=== PATIENT | female | born 1985 | race Caucasian/White ===

== ENCOUNTER 2020-04-02 05:42 | Inpatient (IN) ==
[2020-04-02] MEDS ORDERED: LACTATED RINGERS 1,000 ML IV PRN (05:51)
[2020-04-02] MEDS ORDERED: ONDANSETRON 4 MG/2 ML VIAL IV PRN ×2 (05:51→09:11)
[2020-04-02] MEDS ORDERED: CITRIC ACID/SODIUM CITRATE 30 ML UDCUP PO ONE (05:53)
[2020-04-02] MEDS ORDERED: FAMOTIDINE 20 MG/2 ML VIAL IV ONE (05:53)
[2020-04-02] MEDS ORDERED: ceFAZolin 2,000 MG in PREMIX 1 EACH IV ONE (05:54)
[2020-04-02] MEDS ORDERED: OXYTOCIN/LR 20 UNIT/1,000 ML BAG IV ONE ×3 (05:54→09:11)
[2020-04-02 06:35] LABS: Basophils % 0.4 % (0.0-0.8); Eosinophils # 0.2 10*3/uL (0.0-0.87); Eosinophils % 1.7 % (0.00-10.9); Hematocrit 31.7 VOL% (35.7-47.0); Hemoglobin 10.2 GM/DL (12.0-16.0); Immature Granulocytes % 0.8 %; Immature Granulocytes Absolute 0.08 #; Lymphocytes # 1.6 10*3/uL (1.4-4.0); Lymphocytes % 17.1 % (21.3-54.2); Mean Corpuscular HGB Conc 32.2 GM/DL (32-36); Mean Corpuscular Volume 84.8 FL (87-102); Mean Platelet Volume 10.7 FL (9.6-12.0); Platelet Count 245 T/CUMM (130-400); Red Blood Count 3.74 MC/CUMM (3.8-5.5); Red Cell Distribution Width 13.4 % (9.3-17.3); White Blood Count 9.4 T/CUMM (4-12)
[2020-04-02] MEDS ORDERED: hydrALAZINE 20 MG/1 ML VIAL IV ONE ×2 (06:48→07:45)
[2020-04-02 06:52] LABS: INR 0.9; PT Patient Result 9.6 SECS (9.8-11.9); Partial Thromboplastin Time 26.2 SECS (23.9-33.8)
[2020-04-02 06:59] LABS: Alanine Aminotransferase 20 U/L (13-56); Albumin 2.5 G/DL (3.4-5.0); Alkaline Phosphatase 166 U/L (45-117); Aspartate Amino Transferase 18 U/L (0-37); Bilirubin,Total < 0.39 MG/DL (0.2-1.0); Blood Urea Nitrogen 9 MG/DL (7-18); Calcium 8.5 MG/DL (8.5-10.1); Estimated Glom Filtration Rate 121 ML/MIN; Glucose 79 MG/DL (74-106); Osmolality,Calculated 265.2 MOS/KG (273-304); Total Protein 6.8 G/DL (6.4-8.3)
[2020-04-02 07:01] LABS: Bilirubin,Direct < 0.100 MG/DL (0.0-0.20)
[2020-04-02] MEDS ORDERED: CARBOPROST TROMETHAMINE 250 MCG/ML AMP IM ONE (07:08)
[2020-04-02] MEDS ORDERED: TRANEXAMIC ACID 1,000 MG/10 ML VIAL ONE (07:08)
[2020-04-02] MEDS ORDERED: METHYLERGONOVINE 0.2 MG/1 ML AMP ONE (07:08)
[2020-04-02] MEDS ORDERED: miSOPROStoL 200 MCG TABLET ONE (07:08)
[2020-04-02] MEDS ORDERED: DEXAMETHASONE 4 MG/1 ML VIAL ONE (07:58)
[2020-04-02] MEDS ORDERED: ROPIVACAINE 0.5% 30 ML VIAL ONE (07:58)
[2020-04-02] MEDS ORDERED: RHO(D) IMMUNE GLOBULIN 300 MCG SYRINGE IM ONE (09:11)
[2020-04-02] MEDS ORDERED: ACETAMINOPHEN 325 MG TABLET PO PRN (09:11)
[2020-04-02] MEDS ORDERED: SIMETHICONE CHEW 80 MG TABLET PO PRN (09:11)
[2020-04-02] MEDS ORDERED: LACTATED RINGERS 1,000 ML IV SCH (09:30)
[2020-04-02] MEDS ORDERED: ceFAZolin 1,000 MG in SYRINGE 1 EACH IV SCH (09:30)
[2020-04-02] MEDS ORDERED: PHENYLEPHRINE 1 MG/10 ML SYRINGE IV ONE (09:45)
[2020-04-02] MEDS ORDERED: fentaNYL 100 MCG/2 ML VIAL ONE (09:46)
[2020-04-02] MEDS ORDERED: MORPHINE 10 MG/10 ML VIAL ONE (09:47)
[2020-04-02 09:57] LABS: Apearance,Urine CLEAR (Clear); Bilirubin,Urine Negative (Negative); Blood, Urine Negative (Negative); Glucose,Urine (UA) Negative (Negative); Ketones,Urine Negative (Negative); Mucus,Urine Occasional /LPF (Occasional); Nitrite,Urine Negative (Negative); Protein,Urine Negative; RBC,Urine <1 /HPF (0-4); Squamous Epithelial Cell,Urine Occasional /HPF (0-10); Urine Color Yellow (Yellow); Urine Specific Gravity 1.017 (1.001-1.035); Urine Urobilinogen < 2.0 EU/DL (0.2-1.0); WBC,Urine 1 /HPF (0-6)
[2020-04-02] MEDS: ceFAZolin 1,000 MG in SYRINGE 1 EACH IV SCH (17:10)
[2020-04-03] MEDS: ceFAZolin 1,000 MG in SYRINGE 1 EACH IV SCH (00:15)
[2020-04-03] MEDS: DOCUSATE SODIUM 100 MG CAPSULE PO SCH ×3 (02:03→20:17)
[2020-04-03 06:33] LABS: Basophils % 0.3 % (0.0-0.8); Eosinophils # 0.1 10*3/uL (0.0-0.87); Eosinophils % 0.4 % (0.00-10.9); Hematocrit 27.9 VOL% (35.7-47.0); Immature Granulocytes % 0.7 %; Lymphocytes # 1.6 10*3/uL (1.4-4.0); Lymphocytes % 10.7 % (21.3-54.2); Mean Corpuscular HGB Conc 32.3 GM/DL (32-36); Mean Corpuscular Volume 85.1 FL (87-102); Mean Platelet Volume 10.8 FL (9.6-12.0); Monocytes % 9.6 % (1.7-12.7); Neutrophils % 78.3 % (38.7-73.9); Platelet Count 229 T/CUMM (130-400); Red Blood Count 3.28 MC/CUMM (3.8-5.5); Red Cell Distribution Width 13.9 % (9.3-17.3); White Blood Count 15.2 T/CUMM (4-12)
[2020-04-03] MEDS: oxyCODONE/ACETAMINOPHEN 5-325 MG TABLET PO PRN ×3 (08:38→20:17)
[2020-04-03] MEDS: MULTIVITAMIN (PRENATAL) TABLET PO SCH (08:38)
[2020-04-03] MEDS: MAGNESIUM HYDROXIDE SUSP 30 ML UDCUP PO PRN ×2 (08:38→20:17)
[2020-04-03] MEDS: FERROUS SULFATE 325 MG TABLET PO SCH (08:38)
[2020-04-03] MEDS: IBUPROFEN 800 MG TABLET PO PRN (20:17)
[2020-04-04] MEDS: IBUPROFEN 800 MG TABLET PO PRN (04:40)
[2020-04-04] MEDS: oxyCODONE/ACETAMINOPHEN 5-325 MG TABLET PO PRN ×2 (04:40→09:54)
[2020-04-04 07:30] VITALS: BP 123/85
[2020-04-04] MEDS: DOCUSATE SODIUM 100 MG CAPSULE PO SCH (09:50)
[2020-04-04] MEDS: FERROUS SULFATE 325 MG TABLET PO SCH (09:50)
[2020-04-04] MEDS: MULTIVITAMIN (PRENATAL) TABLET PO SCH (09:50)
== END 2020-04-04 11:30 | disposition home or self-care (01) | DRG 788 ==
LOC: N.LD 05:42 → N.OB 13:02
PROVIDERS: ADMIT Obstetrics & Gynecology; ATTEND Obstetrics & Gynecology
PROC: LDCSECT (ICD-10-PCS; 2020-04-02 09:15)